=== PATIENT | female | born 1985 | race Caucasian/White ===

== ENCOUNTER 2022-11-05 21:47 | Emergency (ER) | payer OTHER, SELFPAY ==
[2022-11-05 21:56] VITALS: BP 119/81; PULSE 82; RESP 16; TEMP 36.2; O2SAT 100
--- NOTE | 2022-11-05 22:33 | ED.ANIMALBIT ---
HPI - Animal Bite General Chief Complaint: Animal Bite Stated Complaint: dog bite in [facility] Time Seen by Provider: 11/05/22 22:16 History of Present Illness HPI narrative: Patient is a 37-year-old female who presents ER status post dog bite. Patient was going [place] a run on the beach in [facility] earlier today when a dog who is with some local fisherman ran up beside her and bit her in the left calf. Patient had not been interacting with the dog previously. The dog did not seem appropriately scared when she shouted at it. The people who owned the dog did not speak Ecu[place] and could not be assessed if the dog had any rabies vaccination. There is a puncture wound and there was bleeding and there is also additional scabbed over bite tompkins to the leg. No cellulitis. No numbness or tingling. Patient is concerned about rabies as it is known to be an issue in dogs in [facility]. Related Data Allergies Allergy/AdvReac Type Severity Reaction Status Date / Time lisinopril Allergy Cough Verified 11/05/22 21:49 Review of Systems Constitutional: Constitutional: Denies chills and Denies fever(s) Cardiovascular: Cardiovascular: Reports no additional cardiovascular complaints Respiratory: Respiratory: Reports no additional respiratory complaints Genitourinary: Genitourinary: Reports no additional female genitourinary complaints Integumentary/Breasts: Comments: Bite wound left calf with bruising PMFSH Past Medical History Medical History (Updated 11/06/22 @ 00:01 by Cyril Raymond) Hemochromatosis Hypertension Surgical History Surgical History (Updated 11/05/22 @ 22:34 by Cali Esparza MD) H/O foot surgery History of section Social History Social History (Updated 11/05/22 @ 22:34 by Cali Esparza MD) Smoking status: Never smoker Exam Narrative: GENERAL: Well-appearing, well-nourished, and in no acute distress. HEAD: Normocephalic, atraumatic. EXTREMITIES: Normal range of motion. No edema. Left calf with 3 superficial bite tompkins that are scabbed over. No large gaping lacerations. There is a puncture wound to the most inferior bite carmelo. There is central bruising as a result of the mouth clamping down. SKIN: Warm, dry. See above. NEURO: Alert and oriented x3. PSYCH: Normal mood and affect. Course Course Emergency Course: Patient with a high risk exposure and it certainly will warrant rabies IgG at the site of the bite as well as a rabies series vaccination with today being day 0. Patient will have to return on days 3, 7, and 14 and Dayana Connolly the infectious disease control nurse will be contacted to help arrange follow-up and immunization. Patient will also be put on a short course of prophylactic antibiotics for potential infection from dog bite. Vital Signs Vital signs: Vital Signs Temperature 97.1 F L 11/05/22 21:56 Pulse Rate 82 11/05/22 21:56 Respiratory Rate 16 11/05/22 21:56 Blood Pressure 119/81 11/05/22 21:56 Pulse Oximetry 100 11/05/22 21:56 Oxygen Delivery Room Air 11/05/22 21:56 Temperature 98.8 F 11/05/22 23:33 Pulse Rate 74 11/05/22 23:33 Respiratory Rate 16 11/05/22 23:33 Blood Pressure 126/95 H 11/05/22 23:33 Pulse Oximetry 99 11/05/22 23:33 Oxygen Delivery Room Air 11/05/22 21:56 Discharge Plan Discharge Clinical Impression: Dog bite, Rabies, need for prophylactic vaccination against Patient Disposition: Home, Self-Care Condition: Stable Instructions: Antibiotic Form, Animal Bite (ED) Additional Instructions: Return to the ER if your bite wound or injection site becomes red/hot/swollen, you have fever over 100.4 ?F, you have new confusion, or you have additional concerns. You will need to follow-up with the infectious control nurse Dayana Connolly outpatient for completion of the rabies vaccination series. You have been prescribed prophylactic antibiotics for infection. Prescriptions: New amoxicillin-po
[2022-11-05] MEDS: RABIES IMMUNE GLOBULIN/PF 1,500 UNITS/5 ML VIAL 1408 UNITS IM (22:53)
[2022-11-05] MEDS: RABIES VACCINE (RABAVERT) 2.5 UNITS VIAL IM (22:57)
[2022-11-05] MEDS: AMOXICILLIN/CLAVULANATE K 875-125 MG TAB 1 TABLET PO (23:15)
[2022-11-05 23:33] VITALS: BP 126/95; PULSE 74; RESP 16; TEMP 37.1; O2SAT 99
== END 2022-11-05 23:34 | disposition home or self-care (01) ==
PROVIDERS: Emergency Provider Emergency Medicine
DX: S81.852A Open bite, left lower leg, initial encounter (principal); Z29.14 Encounter for prophylactic rabies immune globulin; Z23 Encounter for immunization; I10 Essential (primary) hypertension; E83.119 Hemochromatosis, unspecified; W54.0XXA Bitten by dog, initial encounter
CPT/HCPCS: 90471; 90675; 96372; 99283; 90375; A9270

== ENCOUNTER 2022-11-19 10:55 | Outpatient (RCR) | payer OTHER, SELFPAY | END 2023-02-06 23:59 | disposition home or self-care (01) | LOC: ANHVASCINF 10:55 | PROVIDERS: Visit Provider Emergency Medicine | DX: Z20.3 Contact with and (suspected) exposure to rabies (principal) | CPT/HCPCS: 90471; 90675 ==